=== PATIENT | female | born 1950 | race Caucasian/White ===

== ENCOUNTER 2022-03-24 10:27 | Inpatient (IN) | payer BC ==
[2022-03-24] MEDS ORDERED: ACETAMINOPHEN 1000 MG/100 ML BAG IVPB ONE (11:25)
[2022-03-24] MEDS ORDERED: ACETAMINOPHEN INJECTION 100 ML IVPB ONE (12:21)
[2022-03-24 13:47] LABS: HEMATOCRIT 34.6 % (32.4-45.2); MCH 26.2 pg (25.7-33.7); MCHC 31.6 g/dl (32.0-36.0); MEAN CELL VOLUME 82.9 fl (80-96); MEAN PLT VOLUME 8.5 fl (7.5-11.1); PLATELET COUNT 213 10^3/uL (134-434); RBC 4.18 M/mm3 (3.60-5.2); RDW 16.5 % (11.6-15.6); WHITE BLOOD COUNT 48.9 K/mm3 (4.0-10.0)
[2022-03-24 14:10] LABS: CALCIUM 9.1 mg/dL (8.5-10.1)
[2022-03-24 14:11] LABS: ALBUMIN 3.6 g/dl (3.4-5.0); BLOOD UREA NITROGEN 10.5 mg/dL (7-18)
[2022-03-24 14:14] LABS: CREATININE 0.9 mg/dL (0.55-1.3)
[2022-03-24 14:15] LABS: BILIRUBIN,TOTAL 0.4 mg/dL (0.2-1)
[2022-03-24 14:16] LABS: TOT PROT 7.8 g/dl (6.4-8.2)
[2022-03-24] MEDS ORDERED: VANCOMYCIN 1 GM in D5W (PRE-DOCKED) 1,000 MG/250 ML IVPB ONE (14:40)
[2022-03-24] MEDS ORDERED: PIPERACILLIN/TAZOB 4.5 GM 4.5 GM in DEXTROSE 5%-WATER 100 ML IVPB ONE (14:40)
[2022-03-24] MEDS ORDERED: VANCOMYCIN/WATER FOR INJ (PEG) 1,000 MG/200 ML BAG IVPB ONE (14:51)
[2022-03-24] MEDS ORDERED: PIPERACILLIN/TAZOB 4.5 GM 4.5 GM/100 ML BAG IVPB ONE (14:51)
[2022-03-24] MEDS ORDERED: ACETAMINOPHEN 325 MG TABLET (FP) PO PRN (16:02)
[2022-03-24] MEDS ORDERED: ALBUTEROL SO4 HFA INHALER IH PRN (16:05)
[2022-03-25] MEDS: PIPERACILLIN/TAZOB 3.375 GM 3.375 GM in DEXTROSE 5%-WATER - 50 ML IVPB SCH ×3 (01:33→17:27)
[2022-03-25] MEDS ORDERED: guaiFENesin 200 MG/10 ML 10 ML UNIT-DOSE CUPS PO ONE (02:34)
[2022-03-25] MEDS ORDERED: PIPERACILLIN/TAZOB 3.375 GM 3.375 GM/50 ML BAG IVPB ONE (06:00)
[2022-03-25 07:29] LABS: BLOOD UREA NITROGEN 10.4 mg/dL (7-18); CALCIUM 8.7 mg/dL (8.5-10.1); MAGNESIUM 2.4 mg/dL (1.8-2.4)
[2022-03-25 07:32] LABS: CREATININE 0.9 mg/dL (0.55-1.3); PHOSPHOROUS 3.6 mg/dL (2.5-4.9)
[2022-03-25 07:44] LABS: HEMATOCRIT 32.6 % (32.4-45.2); HEMOGLOBIN 10.7 GM/dL (10.7-15.3); MCH 26.7 pg (25.7-33.7); MCHC 32.7 g/dl (32.0-36.0); MEAN CELL VOLUME 81.6 fl (80-96); MEAN PLT VOLUME 8.4 fl (7.5-11.1); PLATELET COUNT 178 10^3/uL (134-434); RDW 16.9 % (11.6-15.6)
[2022-03-25 07:55] LABS: WHITE BLOOD COUNT 34.5 K/mm3 (4.0-10.0)
[2022-03-25 09:22] LABS: ANISOCYTOSIS 1+; MACROCYTOSIS 0
[2022-03-25] MEDS ORDERED: VANCOMYCIN 1 GM in D5W (PRE-DOCKED) 1,000 MG/250 ML IVPB SCH ×2 (10:00→16:00)
[2022-03-25] MEDS ORDERED: valACYclovir HCL 1000 MG TABLET PO SCH (14:00)
[2022-03-25] MEDS ORDERED: VANCOMYCIN 1 GM/200 ML PREMIX BAG IVPB SCH ×2 (16:00→18:30)
[2022-03-25 16:29] VITALS: BMI 34.2
[2022-03-25] MEDS: LITHIUM CARBONATE 150 MG CAPSULE PO SCH (18:27)
[2022-03-25] MEDS: ROSUVASTATIN CA 5 MG TABLET PO SCH (22:36)
[2022-03-26] MEDS: PIPERACILLIN/TAZOB 3.375 GM 3.375 GM in DEXTROSE 5%-WATER - 50 ML IVPB SCH ×3 (02:13→17:57)
[2022-03-26] MEDS: LITHIUM CARBONATE 150 MG CAPSULE PO SCH (09:33)
[2022-03-26] MEDS: ENOXAPARIN NA (PORCINE) 40 MG/0.4 ML DISP.SYRIN SQ SCH (09:34)
[2022-03-26] MEDS: valACYclovir HCL 500 MG TABLET (FP) PO SCH (09:42)
[2022-03-26] MEDS: ROSUVASTATIN CA 5 MG TABLET PO SCH (21:21)
[2022-03-27] MEDS: PIPERACILLIN/TAZOB 3.375 GM 3.375 GM in DEXTROSE 5%-WATER - 50 ML IVPB SCH ×3 (01:47→18:18)
[2022-03-27] MEDS: valACYclovir HCL 500 MG TABLET (FP) PO SCH (10:04)
[2022-03-27] MEDS: LITHIUM CARBONATE 150 MG CAPSULE PO SCH (10:04)
[2022-03-27] MEDS: ENOXAPARIN NA (PORCINE) 40 MG/0.4 ML DISP.SYRIN SQ SCH (10:05)
[2022-03-27 10:07] LABS: HEMATOCRIT 32.7 % (32.4-45.2); HEMOGLOBIN 10.7 GM/dL (10.7-15.3); MCH 26.7 pg (25.7-33.7); MCHC 32.7 g/dl (32.0-36.0); MEAN CELL VOLUME 81.7 fl (80-96); MEAN PLT VOLUME 8.1 fl (7.5-11.1); PLATELET COUNT 199 10^3/uL (134-434); RDW 15.9 % (11.6-15.6)
[2022-03-27 10:28] LABS: WHITE BLOOD COUNT 30.1 K/mm3 (4.0-10.0)
[2022-03-27 10:31] LABS: ALBUMIN 3.1 g/dl (3.4-5.0); BLOOD UREA NITROGEN 10.2 mg/dL (7-18); MAGNESIUM 2.5 mg/dL (1.8-2.4)
[2022-03-27 10:34] LABS: CREATININE 0.9 mg/dL (0.55-1.3)
[2022-03-27 10:37] LABS: BILIRUBIN,TOTAL 0.2 mg/dL (0.2-1); TOT PROT 7.1 g/dl (6.4-8.2)
[2022-03-27 11:26] LABS: ANISOCYTOSIS 0; HELMET CELLS 0; HOWELL-JOLLY BODIES 0; MACROCYTOSIS 0; OVALOCYTE 0; ROULEAU 0; SICKELED CELLS 0; TARGET CELLS 0; TEAR DROP CELLS 0; TOXIC GRANULATION 0
[2022-03-27] MEDS: ROSUVASTATIN CA 5 MG TABLET PO SCH (21:00)
[2022-03-27 23:04] VITALS: RESP 18
[2022-03-28] MEDS: PIPERACILLIN/TAZOB 3.375 GM 3.375 GM in DEXTROSE 5%-WATER - 50 ML IVPB SCH ×2 (01:14→10:56)
[2022-03-28] MEDS: LITHIUM CARBONATE 150 MG CAPSULE PO SCH (10:55)
[2022-03-28] MEDS: valACYclovir HCL 500 MG TABLET (FP) PO SCH (10:55)
[2022-03-28] MEDS: ENOXAPARIN NA (PORCINE) 40 MG/0.4 ML DISP.SYRIN SQ SCH (10:56)
[2022-03-28 12:09] LABS: HEMATOCRIT 34.2 % (32.4-45.2); MCH 26.2 pg (25.7-33.7); MEAN CELL VOLUME 81.9 fl (80-96); MEAN PLT VOLUME 8.1 fl (7.5-11.1); PLATELET COUNT 224 10^3/uL (134-434); RBC 4.18 M/mm3 (3.60-5.2); RDW 16.6 % (11.6-15.6)
[2022-03-28 12:25] LABS: CALCIUM 9.1 mg/dL (8.5-10.1)
[2022-03-28 12:26] LABS: ALBUMIN 3.2 g/dl (3.4-5.0); BLOOD UREA NITROGEN 12.7 mg/dL (7-18); MAGNESIUM 2.3 mg/dL (1.8-2.4)
[2022-03-28 12:29] LABS: CREATININE 0.9 mg/dL (0.55-1.3)
[2022-03-28 12:30] LABS: BILIRUBIN,TOTAL 0.4 mg/dL (0.2-1); TOT PROT 7.3 g/dl (6.4-8.2)
[2022-03-28 12:49] LABS: WHITE BLOOD COUNT 36.9 K/mm3 (4.0-10.0)
[2022-03-28 12:54] LABS: ANISOCYTOSIS 0; HELMET CELLS 0; HOWELL-JOLLY BODIES 0; MACROCYTOSIS 0; OVALOCYTE 0; ROULEAU 0; SICKELED CELLS 0; TARGET CELLS 0; TEAR DROP CELLS 0; TOXIC GRANULATION 0
[2022-03-28 13:46] VITALS: BP 152/77; PULSE 92; TEMP 97.4
== END 2022-03-28 17:58 | disposition home or self-care (01) | DRG 194 ==
LOC: JER 10:27 → JERBED 14:51 → J6S 03-25 15:42
PROVIDERS: ATTEND Nurse Practitioner Family
DX: J18.9 Pneumonia, unspecified organism (principal); C91.10 Chronic lymphocytic leukemia of B-cell type not having achieved remission; R04.2 Hemoptysis; R91.8 Other nonspecific abnormal finding of lung field; D38.1 Neoplasm of uncertain behavior of trachea, bronchus and lung; E78.5 Hyperlipidemia, unspecified; F41.8 Other specified anxiety disorders
CPT/HCPCS: 0241U-QW; 36415; 71045-TC-FY; 71250-TC; 80048; 80053; 83615; 83735; 84100; 85025; 87040; 87070; 87077; 87086; 87205; 87633; 87899; 93005; 93010; 94010; 99285-25